=== PATIENT | male | born 1975 | race Asian ===

== ENCOUNTER 2023-07-07 03:20 | Emergency (ER) | payer BC ==
[2023-07-07] MEDS ORDERED: Amoxicillin/Clavulanate K 875-125 MG Tab ONE (03:50)
== END 2023-07-07 03:55 | disposition home or self-care (01) ==
LOC: LB.ED 03:20
DX: J01.10 Acute frontal sinusitis, unspecified (principal)
CPT/HCPCS: 99283; A9270